=== PATIENT | male | born 1990 | race Two or more races ===

== ENCOUNTER 2023-10-20 09:29 | Emergency (ER) | payer OTHER ==
[2023-10-20 09:38] VITALS: RESP 18; BMI 32.8
[2023-10-20] MEDS ORDERED: METOCLOPRAMIDE HCL INJECTION 10 MG/2 ML VIAL ONE (11:11)
[2023-10-20] MEDS ORDERED: FAMOTIDINE 20 MG/50 ML IVPB 20 MG/50 ML MG IVPB ONE (11:11)
[2023-10-20] MEDS ORDERED: ACETAMINOPHEN 500 MG TABLET (FP) ONE (11:13)
[2023-10-20 11:15] LABS: BASO % 0.7 % (0-2.0); EOS % 1.5 % (0-4.5); HEMATOCRIT 41.8 % (35.4-49); HEMOGLOBIN 14.4 GM/dL (11.7-16.9); LYMPH % 8.9 % (8-40); MCH 27.2 pg (25.7-33.7); MCHC 34.4 g/dl (32.0-35.9); MEAN CELL VOLUME 78.9 fl (80-96); MEAN PLT VOLUME 7.5 fl (7.5-11.1); MONO % 6.2 % (3.8-10.2); NEUT % 82.7 % (42.8-82.8); PLATELET COUNT 220 10^3/uL (134-434); RBC 5.29 M/mm3 (4.00-5.60); RDW 14.6 % (11.9-15.9); WHITE BLOOD COUNT 7.5 K/mm3 (4.0-10.0)
[2023-10-20] MEDS: ACETAMINOPHEN 500 MG TABLET (FP) PO ONE (11:16)
[2023-10-20] MEDS: METOCLOPRAMIDE HCL INJECTION 10 MG/2 ML VIAL IVPUSH ONE (11:16)
[2023-10-20] MEDS: FAMOTIDINE 20 MG/50 ML IVPB 20 MG/50 ML MG IVPB ONE (11:16)
[2023-10-20 11:44] LABS: POTASSIUM 4.2 mmol/L (3.5-5.1)
[2023-10-20 11:50] LABS: ALBUMIN 3.9 g/dl (3.4-5.0); BLOOD UREA NITROGEN 7.6 mg/dL (7-18)
[2023-10-20 11:51] LABS: CREATININE 1.4 mg/dL (0.55-1.3)
[2023-10-20 11:53] LABS: TOT PROT 7.2 g/dl (6.4-8.2)
[2023-10-20 12:47] VITALS: BP 123/77; PULSE 113
[2023-10-20] MEDS ORDERED: AMOX TR/POT CLAV 500MG/125MG TABLETS (FP) ONE (13:33)
[2023-10-20] MEDS ORDERED: AZITHROMYCIN 500 MG TABLET ONE (13:33)
[2023-10-20] MEDS: AZITHROMYCIN 250 MG TABLET PO ONE (13:37)
[2023-10-20] MEDS: AMOXICILLIN 500 MG CAPSULE (FP) PO ONE (13:37)
[2023-10-20 14:02] LABS: BLOOD UREA NITROGEN 7.6 mg/dL (7-18); CALCIUM 9.1 mg/dL (8.5-10.1)
[2023-10-20 14:06] LABS: CREATININE 1.3 mg/dL (0.55-1.3)
[2023-10-20 14:24] VITALS: TEMP 98.5
== END 2023-10-20 14:24 | disposition home or self-care (01) ==
LOC: JER 09:29
PROC: 3E033GC Introduction of Other Therapeutic Substance into Peripheral Vein, Percutaneous Approach (ICD-10-PCS; principal; 2023-10-20)
PROC: 3E030GC Introduction of Other Therapeutic Substance into Peripheral Vein, Open Approach (ICD-10-PCS; 2023-10-20)
DX: J18.9 Pneumonia, unspecified organism (principal); R19.7 Diarrhea, unspecified; R09.81 Nasal congestion; R05.9 Cough, unspecified; R51.9 Headache, unspecified; R50.9 Fever, unspecified; M79.10 Myalgia, unspecified site; R07.9 Chest pain, unspecified; R11.0 Nausea; R10.84 Generalized abdominal pain; Z20.822 Contact with and (suspected) exposure to COVID-19
CPT/HCPCS: 0241U-QW; 36415; 71046-TC-FY; 80048; 80053; 83690; 84484; 85025; 93005; 93010; 99285-25